=== PATIENT | female | born 1995 | race Caucasian/White ===

== ENCOUNTER → 2018-09-18 15:16 | Outpatient (CLI) | payer MEDICAID ==
[~2018-09-18 15:16] MED LIST: ACETAMINOPHEN325 MG PO; BUTALB-APAP-CA1 EACH PO; IBUPROFEN800 MG PO; MOBIC7.5 MG PO; NEURONTIN 300300 MG PO; PERCOCET 7.5/321 TAB PO; PRENAVITE1 TAB PO
[2018-09-18 16:58] LABS: URIC ACID 4.6 mg/dL (2.6-7.2)
[2018-09-18 17:30] LABS: CREATININE - URINE 24.1 mg/dL (30-125); PRO/CRE RATIO URINE 0.3 mg/g; PROTEIN - URINE 6.1 mg/dL (0.0-11.9)
[2018-09-24 13:23] VITALS: BMI 32.8
== END | disposition home or self-care (01) ==
LOC: D.LDO 15:16
PROVIDERS: Obstetrics & Gynecology
DX: O16.9 Unspecified maternal hypertension, unspecified trimester (principal); O76 Abnormality in fetal heart rate and rhythm complicating labor and delivery; Z3A.00 Weeks of gestation of pregnancy not specified

== ENCOUNTER → 2018-09-21 17:23 | Outpatient (CLI) | payer MEDICAID ==
[2018-09-21 18:30] LABS: BASOPHILS 0.1 % (0-2); EOSINOPHILS 1.7 % (0-7); HEMATOCRIT 33.3 % (36.0-48.0); HEMOGLOBIN 11.3 g/dL (12-16); IMMATURE GRANULOCYTES 0.5 % (0-5); LYMPHOCYTES 13.4 % (15-50); MCH 30.7 pg (26.0-34.0); MCHC 33.9 g/dL (31.0-37.0); MCV 90.5 fL (80.0-100.0); MEAN PLATELET VOLUME 9.6 fL (7.4-10.4); MONOCYTES 5.9 % (2-11); NEUTROPHILS 78.4 % (40-80); PLATELET COUNT 284 10x3/uL (130-400); RBC 3.68 10x6/uL (4.00-5.40); RDW 12.8 % (11.5-14.5); WBC 11.1 10x3/uL (4.8-10.8)
[2018-09-21 18:43] LABS: APPEARANCE CLEAR (CLEAR); BILIRUBIN NEGATIVE (NEGATIVE); COLOR YELLOW (YELLOW); GLUCOSE NEGATIVE (NEGATIVE); KETONE NEGATIVE (NEGATIVE); NITRITE NEGATIVE (NEGATIVE); PROTEIN NEGATIVE (NEGATIVE); SPECIFIC GRAVITY 1.015 (1.005-1.020); UROBILINOGEN NORMAL (NORMAL)
[2018-09-21 18:44] LABS: ALBUMIN 2.7 g/dL (3.4-5.0); ALKALINE PHOSPHATASE 189 U/L (46-116); ALT (SGPT) 21 U/L (10-68); BILIRUBIN - TOTAL 0.25 mg/dL (0.2-1.3); CALC OSMOLALITY 272 mosm/kg (275-300); CALCIUM 9.2 mg/dL (8.5-10.1); CARBON DIOXIDE 24.1 mmol/L (21.0-32.0); CHLORIDE - SERUM 103 mmol/L (98-107); CREATININE - SERUM 0.6 mg/dL (0.6-1.3); GLUCOSE 85 mg/dL (74-106); PROTEIN - SERUM 6.6 g/dL (6.4-8.2); SODIUM 138 mmol/L (136-145); UREA NITROGEN 6 mg/dL (7-18); eGFR NON AFRICAN AMERICAN > 90 mL/min (90-120)
[2018-09-21 18:45] LABS: BILIRUBIN - DIRECT 0.07 mg/dL (0.00-0.30); BILIRUBIN - INDIRECT 0.18 mg/dL (0.00-1.00); URIC ACID 4.7 mg/dL (2.6-7.2)
[2018-09-24 13:23] VITALS: BMI 32.8
== END | disposition home or self-care (01) ==
LOC: D.LDO 17:23
PROVIDERS: Obstetrics & Gynecology
DX: O26.893 Other specified pregnancy related conditions, third trimester (principal); Z3A.37 37 weeks gestation of pregnancy; R51 Headache; H53.9 Unspecified visual disturbance

== ENCOUNTER → 2018-09-22 17:02 | Outpatient (CLI) | payer MEDICAID ==
[2018-09-24 13:23] VITALS: BMI 32.8
== END | disposition home or self-care (01) ==
LOC: D.LDO 17:02 → D.LABREF 17:02
DX: O26.899 Other specified pregnancy related conditions, unspecified trimester (principal); Z3A.00 Weeks of gestation of pregnancy not specified

== ENCOUNTER 2018-09-24 11:24 | Inpatient (IN) | payer MEDICAID ==
[2018-09-24] VITALS (10 sets, daily range): BP systolic 105–128; BP diastolic 53–69; Ht 160 cm; Wt 83.9 kg
[~2018-09-24] VITALS: Ht 160 cm; Wt 83.9 kg
[~2018-09-24 11:24] MED LIST changes: -BUTALB-APAP-CA1 EACH PO; -IBUPROFEN800 MG PO; -MOBIC7.5 MG PO; -NEURONTIN 300300 MG PO; -PERCOCET 7.5/321 TAB PO
[2018-09-24 12:17] LABS: HEMOGLOBIN 11.6 g/dL (12-16); MCH 30.8 pg (26.0-34.0); MCHC 34.1 g/dL (31.0-37.0); MCV 90.2 fL (80.0-100.0); MEAN PLATELET VOLUME 9.7 fL (7.4-10.4); RBC 3.77 10x6/uL (4.00-5.40); RDW 12.9 % (11.5-14.5); WBC 13.5 10x3/uL (4.8-10.8)
[2018-09-24 12:22] LABS: CREATININE - URINE 103.2 mg/dL (30-125); PRO/CRE RATIO URINE 0.2 mg/g; PROTEIN - URINE 25.7 mg/dL (0.0-11.9)
[2018-09-24 12:24] LABS: UDS - AMPHET NEGATIVE QUAL (NEGATIVE); UDS - BARB POSITIVE QUAL (NEGATIVE); UDS - BENZO NEGATIVE QUAL (NEGATIVE); UDS - COCAINE NEGATIVE QUAL (NEGATIVE); UDS - OPIATE NEGATIVE QUAL (NEGATIVE); UDS - PCP NEGATIVE QUAL (NEGATIVE); UDS - THC NEGATIVE QUAL (NEGATIVE)
[2018-09-24 12:33] LABS: ALBUMIN 2.6 g/dL (3.4-5.0); ALKALINE PHOSPHATASE 188 U/L (46-116); ALT (SGPT) 21 U/L (10-68); BILIRUBIN - TOTAL 0.18 mg/dL (0.2-1.3); CALC OSMOLALITY 273 mosm/kg (275-300); CALCIUM 8.8 mg/dL (8.5-10.1); CHLORIDE - SERUM 104 mmol/L (98-107); CREATININE - SERUM 0.6 mg/dL (0.6-1.3); GLUCOSE 73 mg/dL (74-106); LDH 186 U/L (81-234); POTASSIUM - SERUM 3.9 mmol/L (3.5-5.1); PROTEIN - SERUM 6.5 g/dL (6.4-8.2); SODIUM 138 mmol/L (136-145); UREA NITROGEN 9 mg/dL (7-18); URIC ACID 5.4 mg/dL (2.6-7.2); eGFR NON AFRICAN AMERICAN > 90 mL/min (90-120)
[2018-09-24] MEDS ORDERED: BUTALB-APAP-CA1 EACH PO (12:59)
--- NOTE | 2018-09-24 20:17 | NUR ---
PT REC'D FROM SURGERY VIA LABOR BED S/P BITALERAL TUBAL LIGATION. VSS. DENIES PAIN AT THIS TIME. DRESSING TO UMBILICUS C/D/I. FUNDUS FIRM AND MIDLINE WITH LIGHT LOCHIA NOTED. PERICARE PROVIDED AT THIS TIME. KWAN CATH PATENT WITH YELLOW URINE NOTED. EPIDURAL CATH REMOVED PER ANESTHESIA WITH TIP IN PLACE. NO ACUTE DISTRESS NOTED AT THIS TIME. SIDERAILS UP X2 FOR SAFETY. CALL LIGHT IN PT REACH. Laureano GRIMM RN
--- NOTE | 2018-09-24 21:00 | NUR ---
PT OFFERED ICE CHIPS AT THIS TIME. NO ACUTE DISTRESS NOTED. Laureano GRIMM RN.
--- NOTE | 2018-09-24 21:50 | NUR ---
KWAN CATH EMPTIED AT THIS TIME. 250 ML NOTED. Laureano GRIMM RN
--- NOTE | 2018-09-24 22:25 | NUR ---
PT OFFERED CLEAR LIQUIDS. NO NAUSEA OR VOMITING NOTED AT THIS TIME. PT IS ABLE TO MOVE LEGS AT THIS TIME BUT STILL WITH SOME TINGLING NOTED. WILL CONTINUE TO MONITOR. Laureano GRIMM RN
--- NOTE | 2018-09-25 01:19 | NUR ---
PT REC'D IN BED AT [facility]. COMPLAINS OF PAIN AT A LEVEL OF 8. MEDICATED WITH TYLENOL #3 ONE TAB. Sandhu CATH EMPTIED AT THIS TIME. 300 ML NOTED. PT UP TO BATHROOM. PERICARE PERFORMED AND PT AMBULATING IN THE HALLWAY. NO ACUTE DISTRESS NOTED AT THIS TIME. Laureano GRIMM RN
--- NOTE | 2018-09-25 02:40 | NUR ---
PT ASLEEP AT THIS TIME. DID NOT AWAKEN. RESP EVEN AND UNLABORED. NO DISTRESS NOTED. Laureano GRIMM RN
[2018-09-25] MEDS ORDERED: NEURONTIN 300300 MG PO ×2 (03:38→03:42)
[2018-09-25] MEDS ORDERED: MOBIC7.5 MG PO (03:44)
[2018-09-25] MEDS ORDERED: PERCOCET 7.5/321 TAB PO (03:45)
--- NOTE | 2018-09-25 04:20 | NUR ---
PT ASLEEP AT THIS TIME. RESTING WELL. NO DISTRESS NOTED. Laureano GRIMM RN
[2018-09-25 05:33] VITALS: BP 154/80
--- NOTE | 2018-09-25 05:35 | NUR ---
pt medicated for pain with scheduled tylenol for pain level of 7 at this time. will continue to monitor. pt states that she is passing flatus this am and was able to rest better since passing some gas. no acute distress noted at this time. siderails up for safety. call light in pt reach. hemalatha friend rn
[2018-09-25 07:33] LABS: RAPID PLASMA REAGIN Non Reactive (Non Reactive)
[2018-09-25 07:38] VITALS: BP 125/76
--- NOTE | 2018-09-25 07:38 | NUR ---
RECEIVED PT LYING SUPINE IN BED. AWAKE. VSS. HRRR WITHOUT AUDIBLE MURMUR. BBS CLEAR. BS X 4. ABDOMEN SOFT/NON-DISTENDED. PT STATES PASSING GAS. DRESSING TO UMBILICUS CLEAR WITHOUT DRAINAGE NOTED. FUNDUS FIRM AT U/2. RUBRA LOCHIA SCANT AMT. NEG HOMANS' SIGN. PPP. NO EDEMA NOTED TO BLE. KWAN TO GRAVITY DRAINING CLEAR, YELLOW URINE. PT STATES PAIN OF '5" ON 0-10 PAIN SCALE. DECLINES PAIN MED AT THIS TIME. SR UPX2. CALL LIGHT IN REACH.
[2018-09-25 08:18] LABS: BASOPHILS 0.1 % (0-2); EOSINOPHILS 0.7 % (0-7); HEMATOCRIT 31.7 % (36.0-48.0); HEMOGLOBIN 10.7 g/dL (12-16); IMMATURE GRANULOCYTES 0.4 % (0-5); LYMPHOCYTES 13.8 % (15-50); MCH 30.7 pg (26.0-34.0); MCHC 33.8 g/dL (31.0-37.0); MCV 91.1 fL (80.0-100.0); MEAN PLATELET VOLUME 9.7 fL (7.4-10.4); MONOCYTES 5.9 % (2-11); NEUTROPHILS 79.1 % (40-80); PLATELET COUNT 260 10x3/uL (130-400); RBC 3.48 10x6/uL (4.00-5.40); RDW 13.1 % (11.5-14.5); WBC 13.6 10x3/uL (4.8-10.8)
--- NOTE | 2018-09-25 08:32 | NUR ---
DR FORD NOTIFIED KWAN LEFT IN POST EPIDURAL ANESTHESIA. ORDERS RECEIVED TO DC KWAN AND IV.
--- NOTE | 2018-09-25 08:43 | NUR ---
SL DC'D WITH CATHELON INTACT. PRESSURE BANDAGE TO SITE. KWAN DC'D WITH 750 ML OF CLEAR, YELLOW URINE NOTED IN BAG. PT JEANETTE WELL.
--- NOTE | 2018-09-25 09:31 | NUR ---
PT AMBULATORY IN HALLS. JEANETTE ACTIVITY WELL.
--- NOTE | 2018-09-25 10:00 | NUR ---
PT TRANSFERED VIA AMBULATORY TO ROOM 1257. PT ORIENTED TO ROOM, BED, AND CALL LIGHT. SR UPX 2. CALL LIGHT IN REACH.
--- NOTE | 2018-09-25 10:58 | NUR ---
PT SITTING UP IN BED. C/O INCISIONAL AND ABDOMINAL PAIN OF "8" ON 0-10 PAIN SCALE. TYLENOL #3 1 TAB GIVEN PO ORDERED. PT INSTRUCTED ON MED. VERBALIZES UNDERSTANDING.
--- NOTE | 2018-09-25 12:27 | NUR ---
PT AMBULATORY IN ROOM. STATES VOIDED. 500 ML OF CLEAR, YELLOW URINE NOTED IN SPECIPAN. PT DENIES C/O OR NEEDS.
--- NOTE | 2018-09-25 14:00 | NUR ---
PT SITTING UP IN BED. CARING FOR INFANT. DENIES C/O OR NEEDS. STATES SHOWERED EARLIER.
[2018-09-25 16:10] VITALS: BP 154/80
--- NOTE | 2018-09-25 16:10 | NUR ---
VS NOTED. PT C/O INCISIONAL AND ABDOMINAL PAIN AND CRAMPING OF "9" ON 0-10 PAIN SCALE. TYLENOL #3 1 TAB GIVEN PO ORDERED. PT INSTRUCTED ON MED. VERBALIZES UNDERSTANDING. ABDOMINAL INCISION COVERED WITH DRESSING. SMALL AREA OF REDNESS NOTED BELOW WHITE DRESSING. PT STATES PASSING GAS. NO BM YET. PT ENCOURAGED TO AMBULATE IN HALLS. VERBALIZES UNDERSTANDING. 700 ML OF CLEAR, YELLOW URINE NOTED IN SPECIPAN.
--- NOTE | 2018-09-25 18:30 | NUR ---
DR FORD TO ROOM.
[2018-09-25 19:32] VITALS: BP 122/73
--- NOTE | 2018-09-25 19:32 | NUR ---
PT REC'D IN BED AT THIS TIME. STATES PAIN IS ABOUT A 3. VSS. LUNGS CLEAR. BS+. PT STATES THAT SHE IS PASSING FLATUS. GRESSING TO UMBILICUS C/D/I. SMALL AMOUNT OF REDNESS NOTED BELOW INCISION. NO DRAINAGE NOTED. FUNDUS FIRM AND MIDLINE WITH LIGHT LOCHIA NOTED. PT STATES THAT SHE IS VOIDING WELL SINCE CATHETER REMOVAL. SHE ALSO STATES THAT SHE TOLERATING A REGULAR DIET WITHOUT NAUSEA/VOMITING. S/O AT SIDE. NO ACUTE DISTRESS NOTED AT THIS TIME. SIDERAILS UP X2 FOR SAFETY. CALL LIGHT IN PT REACH. Laureano GRIMM RN
--- NOTE | 2018-09-25 20:15 | NUR ---
ROUNDS COMPLETED, NAD NOTED. RESP EVEN AND UNLABORED, CALL LIGHT IN EASY REACH, CONTINUE TO MONITOR.
--- NOTE | 2018-09-25 21:05 | NUR ---
ROUNDS COMPLETED, NO NEEDS VOICED, RESP EVEN AND UNLABORED, CONTINUE TO MONITOR.
--- NOTE | 2018-09-25 22:08 | NUR ---
PT REQUESTS PAIN MED FOR C/O ABD PAIN RATED A 5 ORF 10 ON NUMERIC PAIN SCALE, TYLENOL #3 ONE TAB PO GIVEN WITH SIPS OF SODA, HS SNACK TRAY ALSO PROVIDED AT THIS TIME. PT SITTING UP IN BED, NAD NOTED, RESP EVEN AND UNLABORED, CALL LIGHT IN EASY REACH. CONTINUE TO MONITOR.
--- NOTE | 2018-09-25 23:00 | NUR ---
C/O PAIN RATED 4 ON PAIN REASSESSMENT, SCHEDULED MOTRIN ADMINISTERED WITH SIPS SODA AND MOM ALSO GIVEN AT THIS TIME. PT RESP EVEN AND UNLABORED, NAD NOTED, HOB ELEVATED, NAD NOTED AT PRESENT. CALL LIGHT IN EASY REACH. CONTINUE TO MONITOR.
--- NOTE | 2018-09-25 23:08 | NUR ---
SITZ BATH OFFERED, PT REFUSED AT THIS TIME, BUT STATES MAY CHOOSE TO UTILIZE AFTER BOTTLE FED. WILL MONITOR.
--- NOTE | 2018-09-25 23:56 | NUR ---
PT DEMONSTRATES USE OF SITZ BATH APPROPRIATELY AFTER VERBAL INSTRUCTIONS GIVEN. CALL LIGHT IN EASY REACH, NAD NOTED. CONTINUE TO MONITOR.
--- NOTE | 2018-09-26 00:30 | NUR ---
PT REQUESTING INFANT BLANKETS AND SHIRT; SAME PROVIDED, STATES "IT WAS OKAY" WHEN INQUIRING ABOUT SATISFACTION WITH SITZ BATH USE. DENIES NEEDS OR CONCERNS ON INQUIRY. INFANT IN ARMS. NAD NOTED. CONTINUE TO MONITOR.
--- NOTE | 2018-09-26 02:27 | NUR ---
ROUNDS COMPLETED. PT DENIES PAIN REFUSES OFFERED SCHEDULED TYLENOL AT THIS TIME. WILL MONITOR.
--- NOTE | 2018-09-26 04:42 | NUR ---
ROUNDS COMPLETED, PT RESTING WITH EYES CLOSED, RESP EVEN AND UNLABORED, HOB ELEVATED 30 DEGREES, NAD NOTED. CALL LIGHT IN EASY REACH, CONTINUE TO MONITOR.
--- NOTE | 2018-09-26 05:37 | NUR ---
ROUNDS COMPLETED, PT RESTING WITH EYES CLOSED, NAD NOTED. CONTINUE TO MONITOR.
--- NOTE | 2018-09-26 07:09 | NUR ---
REPORT GIVEN TO ONCOMING SHIFT STAFF.
[2018-09-26 07:45] VITALS: BP 136/85
--- NOTE | 2018-09-26 07:45 | NUR ---
THIS RN TO ROOM FOR SHIFT ASSESSMENT. PT LYING IN BED AWAKE, SUPINE. PT RATES PAIN 2/10, STATES MOTRIN SHE JUST TOOK HELPED. SHIFT ASSESSMENT COMPLETE, VSS, SEE FLOWSHEET FOR DOC. BTL INCISION C/D/I. FF, ML, U/2. SMALL RUBRA LOCHIA. PT INSTRUCTED ON S/S TO REPORT WITH LOCHIA FLOW, UNDERSTANDING VERBALIZED. POC AND POSSIBLE D/C TO HOME DISCUSSED WITH PT. PT STATES SHE WOULD LIKE TO GO HOME TODAY, AND WANTS TO HAVE CIRCUMCISED PRIOR TO D/C. BALBIR RN NOTIFIED. PT DENIES NEEDS AT THIS TIME, SETTING UP BREAKFAST TRAY. SRux2, CL IN REACH, WILL CONT TO MONITOR.
--- NOTE | 2018-09-26 09:05 | NUR ---
PT AMBULATING IN HALLS, WALKS TO NURSES STATION AND ASKS IF SHE CAN DRESS IN HER OWN CLOTHES. PT INSTRUCTED SHE MAY, QUESTIONED IF SHE NEEDS SHOWER SUPPLIES. PT STATES SHE NEEDS TOWELS. THIS RN TO ROOM WITH PT, TOWELS AND CLOTHS PROVIDED. BED LINENS CHANGED WHILE PT SHOWERING, FAMILY IN ROOM. WILL CONT TO MONITOR.
--- NOTE | 2018-09-26 09:44 | NUR ---
PT ADMIN SCHEDULED TYLENOL, SEE EMAR FOR DOC. PT RATING PAIN 2-3/10 AT THIS TIME. PT DENIES NEEDS, WILL CONT TO MONITOR.
--- NOTE | 2018-09-26 11:19 | NUR ---
THIS RN TO ROOM FOR PT CHECK. PT SITTING UP IN BED WATCHING TV, INFANT IN [place] AT BEDSIDE. PT DENIES PAIN OR ANY NEEDS AT THIS TIME. TRASH IN ROOM TAKEN OUT. WILL CONT TO MONITOR.
[2018-09-26] MEDS ORDERED: IBUPROFEN800 MG PO (13:34)
--- NOTE | 2018-09-26 13:45 | NUR ---
THIS RN TO ROOM FOR PT CHECK. PT DENIES PAIN OR ANY NEEDS, SITTING UP IN BED WATCHING TV. FOB AT BEDSIDE. SRUx2, CL IN REACH. WILL CONT TO MONITOR.
--- NOTE | 2018-09-26 14:42 | NUR ---
PT AMBULATING IN HALLS, DENIES NEEDS. STATES SHE IS JUST WALKING TO GET A CUP OF ICE. WILL CONT TO MONITOR.
--- NOTE | 2018-09-26 15:15 | NUR ---
PT DENIES NEED FOR FLU/TDAP, STATES SHE RECEIVED THEM IN CLINIC.
--- NOTE | 2018-09-26 15:40 | NUR ---
PT GIVEN PRESCRIPTIONS AND D/C INSTRUCTIONS. PT VERBALIZES UNDERSTANDING AND DENIES QUESTIONS, SIGNS CHART COPIES.
--- NOTE | 2018-09-26 15:45 | NUR ---
PT OFF UNIT VIA W/C TO PRIVATE VEHICLE FOR D/C TO HOME. FOB TO DRIVE. BUCKLED IN CARSEAT PER PT.
[2018-09-27 13:18] LABS: UDSC - AMPHET Negative ng/mL (Cutoff=1000); UDSC - BARB Positive (Cutoff=300); UDSC - BENZO Negative ng/mL (Cutoff=300); UDSC - COC Negative ng/mL (Cutoff=300); UDSC - METH Negative ng/mL (Cutoff=300); UDSC - OPIATES Negative ng/mL (Cutoff=300); UDSC - PCP Negative ng/mL (Cutoff=25); UDSC - PROPOXY Negative ng/mL (Cutoff=300); UDSC - THC Negative ng/mL (Cutoff=50)
== END 2018-09-26 15:45 | disposition home or self-care (01) | DRG 798 ==
LOC: D.LD 11:24 → D.SDCHOLD 14:40 → D.LD 14:43
PROVIDERS: ADMIT Obstetrics & Gynecology
PROC: 0UB70ZZ Excision of Bilateral Fallopian Tubes, Open Approach (ICD-10-PCS; 2018-09-24)
PROC: 10E0XZZ Delivery of Products of Conception, External Approach (ICD-10-PCS; principal; 2018-09-24 19:10)
DX: O13.4 Gestational [pregnancy-induced] hypertension without significant proteinuria, complicating childbirth (principal); Z37.0 Single live birth; Z3A.37 37 weeks gestation of pregnancy; Z30.2 Encounter for sterilization; O99.02 Anemia complicating childbirth